=== PATIENT | female | born 1970 | race Caucasian/White ===

== ENCOUNTER 2016-04-13 20:53 | Emergency (ER) | payer OTHER ==
[~2016-04-13] VITALS: Ht 170.2 cm; Wt 74.9 kg
[~2016-04-13 20:53] MED LIST: OXYC5TAB PO; SENN-104 PO
[2016-04-13 20:55] VITALS: TEMP 36.6; Ht 170.2 cm; Wt 74.9 kg
[2016-04-13] MEDS ORDERED: PROPARACAINE HCL 0.5% OP SOLN 15 ML BTL ONE (21:33)
[2016-04-13] MEDS ORDERED: ACET-1256 PO (21:37)
[2016-04-13] MEDS ORDERED: OXYCODONE HCL IR 5 MG TAB (IMMEDIATE RELEASE) PO STA (21:51)
[2016-04-13] MEDS ORDERED: IBUPROFEN 600 MG TAB PO STA (21:51)
[2016-04-13] MEDS ORDERED: ERYTHROMYCIN OP OINT 1 GM PKT OP STA (21:51)
[2016-04-13] MEDS ORDERED: OXYCODONE IR HOME PACK PO ONE (22:00)
[2016-04-13 22:17] VITALS: BP 134/88; PULSE 97; O2SAT 99
--- NOTE | 2016-04-14 02:00 | EMERGENCY ROOM VISIT NOTE ---
History Report prepared by Griselda: Lolly Garcia Under the Supervision of: Dr. Preston Carlos M.D. First contact with patient: 21:26 Chief Complaint: EYE PAIN Stated Complaint: LF EYE PAIN History of Present Illness The patient is a 45 year old female who presents to the Emergency Room with complaints of constant left eye pain beginning this morning. The patient describes the pain as someone poked her in the eye. When the eye is shut she does not experience pain. The patient is experiencing a headache, light sensitivity, slight vision changes, and watering of the eye. She does not wear contacts. Pt denies LOC, fevers, chills, diaphoresis, neck pain, chest pain, breathing difficulties, nausea, vomiting, abdominal pain, back pain, urinary symptoms, numbness, weakness, lymphadenopathy, rash, trauma to eye or other complaints. Source of History: patient Onset: this morning Position: eye (left) Quality: other (poking sensation) Timing: constant Associated Symptoms: + headache Note: The patient is experiencing light sensitivity, slight vision changes, and watering of the eye. Review of Systems See HPI for pertinent positives and negatives. A total of six systems were reviewed and were otherwise negative. Past Medical & Surgical Medical Problems: (1) Panic attacks Surgical Problems: (1) S/P section (2) S/P laparoscopic cholecystectomy Family History No significant family history Social History Smoking Status: Current Every Day Smoker Alcohol Use: occasionally Marital Status: single Housing Status: lives with family Occupation Status: employed Current/Historical Medications Scheduled PRN Acetaminophen (Tylenol), 1,000 MG PO PRN UD PRN for Headache or Pain Allergies Coded Allergies: No Known Allergies (Verified , 04/13/16) Physical Exam Vital Signs Date Time Temp Pulse Resp B/P Pulse Ox O2 Delivery O2 Flow Rate FiO2 04/13/16 22:17 97 18 134/88 99 04/13/16 20:55 36.6 102 16 149/93 99 Room Air Physical Exam GENERAL: Awake, alert, well-appearing, in no distress HENT: Normocephalic, atraumatic. Oropharynx unremarkable. EYES: Normal conjunctiva. Sclera non-icteric. NECK: Supple. No nuchal rigidity. FROM. No JVD. RESPIRATORY: Clear to auscultation. CARDIAC: Regular rate, normal rhythm. Extremities warm and well perfused. Pulses equal. MUSCULOSKELETAL: Atraumatic. NEURO: Normal sensorium. No sensory or motor deficits noted. SKIN: No rash or jaundice noted. Medical Decision & Procedures Medications Administered Medications (Trade) Dose Ordered Sig/Arlen Route Start Time Stop Time Status Last Admin Dose Admin Proparacaine HCl (Alcaine 0.5% Oph Soln) 225 drops STK-MED ONCE .ROUTE 04/13/16 21:33 04/13/16 21:34 DC 04/13/16 21:37 225 DROPS Erythromycin (Erythromycin Oph Oint) 1 appln NOW STAT OP 04/13/16 21:51 04/13/16 21:54 DC 04/13/16 22:09 1 APPLN Ibuprofen (Motrin Tab) 600 mg NOW STAT PO 04/13/16 21:51 04/13/16 21:54 DC 04/13/16 22:08 600 MG Oxycodone HCl (Roxicodone Immediate Rel Tab) 5 mg NOW STAT PO 04/13/16 21:51 04/13/16 21:54 DC 04/13/16 22:09 5 MG Oxycodone HCl (Roxicodone Immediate Rel 5MG Home Pack) 1 homepack UD ONCE PO 04/13/16 22:00 04/13/16 22:01 DC 04/13/16 22:08 1 HOMEPACK Procedure Slit Lamp Examination Indication:Left eye pain The left eye was prepped with topical proparacaine. Slit lamp examination was performed in the standard fashion. Cornea appeared clear. Anterior chamber normal. Scleral injection is present. Mild discharge present. Fluorescein examination performed and revealed corneal defect from 3 o'clock position across central axis to 8 o'clock position. No foreign bodies noted. Negative Aguila sign. The patient tolerated the procedure well without complication. ED Course 2130: The patient was evaluated in room C3. A complete history and physical exam was performed. 2135: 2 drops of Proparacaine into the left eye with good relief of pain. 2137: IOP average 14.3 in left eye. 2145: Refer to procedure for Slit Lamp examination. 2147: Patient headache has no resolved. 2150: Roxicodone Immediate Rel Tab 5 mg PO, Motrin Tab 600 mg PO, Erythromycin Oph Oint 1 appln OP. 0: Roxicodone Immediate Rel 5 mg Home Pack 1 homepack PO. 2203: I reevaluated the patient. Discussed results and discharge instructions: she verbalized understanding and agreement. The patient is ready for discharge. Medical Decision Triage Nursing notes reviewed and agree them. The patient's history was concerning for eye complaints. Differential diagnosis: Etiologies such as trauma, corneal abrasion, corneal ulcer, foreign body, globe penetration, hyphema, hypopyon, and orbital cellulitis, periorbital cellulitis, as well as others were entertained. Physical examination findings: As above.~ Slit-lamp examination revealed a corneal abrasion injury. ER treatment provided: Proparacaine applied and the patient had complete resolution of pain and headache Erythromycin ophthalmic ointment Motrin Oxycodone On reassessment the patient felt better. Diagnostics interpretation by me: Imaging studies: Deferred The patient has what appears to be a corneal abrasion. Her visual acuity is adequate. Her pressures are normal. Anterior chamber was normal. She does not wear contacts. She was already feeling better as the day progressed however was still uncomfortable. Proparacaine completely resolved her symptoms. The patient was treated as above. I discussed conservative management and close follow-up as an outpatient. The patient was in agreement. By the evaluation outlined above emergent etiologies such as dendrite, corneal ulcer, foreign body, globe penetration, hyphema, hypopyon, and orbital cellulitis, periorbital cellulitis, as well as others were deemed relatively unlikely. The patient and were informed about the findings as listed above. All questions were answered and they were pleased with the treatment. Return instructions were outlined and the patient was discharged in stable condition. Outpatient prescription management: Erythromycin ophthalmic ointment Oxycodone home pack Referral: The patient was referred to her PCP for follow-up for a recheck of the current condition. The chart was completed utilizing [employer] voice recognition software. Grammatical errors, random word insertions, pronoun errors, and incomplete sentences are an occasional consequence of this system due to software limitations, ambient noise, and hardware issues. Any formal questions or concerns about the content, text, or information contained within the body of this dictation should be directly addressed to the physician for clarification. Impression Primary Impression: Left corneal abrasion Scribe Attestation The scribe's documentation has been prepared under my direction and personally reviewed by me in its entirety. I confirm that the note above accurately reflects all work, treatment, procedures, and medical decision making performed by me. Departure Information Dispostion Home / Self-Care Referrals No Doctor, Assigned (PCP) Forms HOME CARE DOCUMENTATION FORM, IMPORTANT VISIT INFORMATION, WORK / SCHOOL INSTRUCTIONS Patient Instructions My [facility] Additional Instructions Diagnosis: 1. Corneal abrasion Erythromycin eye ointment: apply a 1/4" ribbon to the affected eye(s) four times a day for the next three days. Wash your hands well, put the ointment on your clean fingertip. Pull down the lower eye lid and apply it, blink the ointment into the eye. Oxycodone (OxyIR) 5mg: Take 1-2 pills every four hours as needed for breakthrough pain. Avoid alcohol, operating machinery or dangerous equipment, working on ladders or roofs, DRIVING, or situations where being under the influence may be dangerous. It is recommended to use a stool softener such as Colace, 100mg twice daily while taking this medication to avoid constipation. Acetaminophen(Tylenol) may be used for fever or pain. Use 1000mg every six hours as needed. Avoid using more than 4000mg in a 24 hour period. Ibuprofen(Motrin, Advil) may be used for fever or pain. Use 600mg every six hours as needed. Take with food. Avoid using more than 2400mg in a 24 hour period. Do not use 2400mg per day for more than three consecutive days without physician direction. Prolonged inappropriate use can lead to stomach upset or ulcers. Cool compresses for 20 minutes at a time four times daily for 2-3 days. Avoid bright lights today, wear sun glasses. Return to the ER for facial swelling, worsening vision, severe eye pain, fevers or as needed. Follow-up with your primary care physician in 2 to 3 days for a recheck of your current condition.
== END 2016-04-13 22:17 | disposition home or self-care (01) ==
LOC: C.EDB 20:53 → C.EDC 22:17
DX: S05.02XA Injury of conjunctiva and corneal abrasion without foreign body, left eye, initial encounter (principal); R51 Headache; F17.200 Nicotine dependence, unspecified, uncomplicated; X58.XXXA Exposure to other specified factors, initial encounter

== ENCOUNTER 2016-10-06 15:13 | Emergency (ER) | payer OTHER ==
[~2016-10-06] VITALS: Ht 170.2 cm; Wt 74.5 kg
[~2016-10-06 15:13] MED LIST changes: +ACET-1256 PO; -OXYC5TAB PO; -SENN-104 PO
[2016-10-06 15:17] VITALS: Ht 170.2 cm; Wt 74.5 kg
[2016-10-06 16:00] LABS: HEMATOCRIT 41.5 % (37-47); MEAN CELL VOLUME 96.7 fL (80-100); MEAN CORPUSCULAR HEMOGLOBIN 32.6 pg (25-34); MEAN CORPUSCULAR HGB CONC 33.7 g/dl (32-36); MEAN PLATELET VOLUME 10.2 fL (7.4-10.4); PLATELET COUNT 263 K/uL (130-400); RED BLOOD COUNT 4.29 M/uL (4.2-5.4); WHITE BLOOD COUNT 9.85 K/uL (4.8-10.8)
[2016-10-06 16:15] LABS: ALT/SGPT 17 U/L (12-78); BLOOD UREA NITROGEN 13 mg/dl (7-18); BUN/CREATININE RATIO 18.2 (10-20); CALCIUM 8.5 mg/dl (8.5-10.1); CARBON DIOXIDE 28 mmol/L (21-32); CHLORIDE 109 mmol/L (98-107); CREATININE 0.71 mg/dl (0.60-1.20); GLUCOSE 106 mg/dl (70-99); POTASSIUM 3.9 mmol/L (3.5-5.1); SODIUM 144 mmol/L (136-145)
[2016-10-06 16:17] LABS: MANUAL MICROSCOPIC REQUIRED? NO; REVIEW REQ? NO; URINE APPEARANCE CLEAR (CLEAR); URINE BILIRUBIN NEG (NEG); URINE COLOR YELLOW; URINE EPITHELIAL CELL AUTO >30 /lpf (0-5); URINE NITRITE NEG (NEG); URINE SPECIFIC GRAVITY 1.029 (1.000-1.030); UROBILINOGEN NEG (NEG); ZZUR CULT IF INDIC CLEAN CATCH NO
[2016-10-06 16:18] LABS: ALKALINE PHOSPHATASE 70 U/L (45-117); AST/SGOT 17 U/L (15-37)
[2016-10-06 16:32] LABS: BASO % 0.2 %; BASO ABS # 0.02 K/uL (0-0.2); COMPLETE YES; EOS % 1.9 %; IG% 0.2 %; LYMPH % 35.6 %; LYMPH ABS # 3.51 K/uL (1.2-3.4); MONO % 5.7 %; NEUT % 56.4 %
--- NOTE | 2016-10-06 16:38 | DIAGNOSTIC IMAGING REPORT ---
ABD/PELVIS WITHOUT FOR STONE CT DOSE: 669.31 mGy.cm HISTORY: Flank pain right flank pain TECHNIQUE: Multiaxial CT images of the abdomen and pelvis were performed without the use of intravenous and oral contrast according to the standard department stone protocol. A dose lowering technique was utilized adhering to the principles of ALARA. COMPARISON STUDY: None. FINDINGS: Lung bases are clear. Configuration of liver spleen and pancreas are unremarkable. Prior cholecystectomy. No evidence for an obstructing urinary tract calculus. Nonobstructing bowel pattern. Normal appendix. IMPRESSION: No renal stones or hydronephrosis. No acute process of the abdomen or pelvis. The above report was generated using voice recognition software. It may contain grammatical, syntax or spelling errors. Electronically signed by: Hamilton Linder M.D. 10/06/2016 4:36 PM Dictated Date/Time: 10/06/2016 4:34 PM
[2016-10-06 17:33] VITALS: BP 114/60; PULSE 65; TEMP 36.7; O2SAT 98
--- NOTE | 2016-10-06 20:16 | EMERGENCY ROOM VISIT NOTE ---
History Report prepared by Scribe: Nicole Jacobson Under the Supervision of: Dr. Preston Carlos M.D. First contact with patient: 15:21 Chief Complaint: FLANK PAIN Stated Complaint: RIGHT LOWER BACK/SIDE History of Present Illness The patient is a 46 year old female who presents to the Emergency Room with complaints of persistent right sided flank pain for the past 3 weeks. She rates her discomfort as a 5/10 and notes the pain radiates from her back around to her upper thigh area. Gas-X and Tylenol have provided minimal pain relief. She has tried seeing her chiropractor for manipulations but state they have provided no relief. 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 The patient has undergone a previous cholecystectomy and 3 sections. She denies any family history of kidney stones. Pt denies LOC, headache, fevers, chills, diaphoresis, visual changes, neck pain, chest pain, breathing difficulties, nausea, vomiting, back pain, melena, hematochezia, urinary symptoms, numbness, weakness, lymphadenopathy, rash, or other complaints. Source of History: patient Onset: 3 weeks [employer] Position: back Symptom Intensity: 5/10 Timing: other (persistent) Modifying Factors (Relieving): tylenol, other (Gas-X, chiropractic manipulations) Review of Systems See HPI for pertinent positives and negatives. A total of ten systems were reviewed and were otherwise negative. Past Medical & Surgical Medical Problems: (1) Panic attacks Surgical Problems: (1) S/P section (2) S/P laparoscopic cholecystectomy Family History No significant family history Social History Smoking Status: Current Every Day Smoker Alcohol Use: occasionally Drug Use: none Marital Status: Housing Status: lives with family Occupation Status: employed Current/Historical Medications Scheduled PRN Acetaminophen (Tylenol), 1,000 MG PO PRN UD PRN for Headache or Pain Allergies Coded Allergies: No Known Allergies (Verified , 10/06/16) Physical Exam Vital Signs Date Time Temp Pulse Resp B/P (MAP) Pulse Ox O2 Delivery O2 Flow Rate FiO2 10/06/16 17:33 36.7 65 18 114/60 98 10/06/16 15:17 36.7 91 18 123/79 98 Room Air Physical Exam GENERAL: Awake, alert, well-appearing, in no distress HENT: Normocephalic, atraumatic. Oropharynx unremarkable. EYES: Normal conjunctiva. Sclera non-icteric. NECK: Supple. No nuchal rigidity. FROM. No JVD. RESPIRATORY: Clear to auscultation. CARDIAC: Regular rate, normal rhythm. Extremities warm and well perfused. Pulses equal. ABDOMEN: Soft, non-distended. RLQ tenderness to palpation. No rebound or guarding. No masses. RECTAL: Deferred. MUSCULOSKELETAL: Chest examination reveals no tenderness. The back is symmetrical on inspection without obvious abnormality. Right sided CVA tenderness to palpation. No joint edema. LOWER EXTREMITIES: Calves are equal size bilaterally and non-tender. No edema. No discoloration. NEURO: Normal sensorium. No sensory or motor deficits noted. SKIN: No rash or jaundice noted. Medical Decision & Procedures ER Provider Diagnostic Interpretation: Radiology results as stated below per my review and radiologist interpretation: ABD/PELVIS WITHOUT FOR STONE CT DOSE: 669.31 mGy.cm HISTORY: Flank pain right flank pain TECHNIQUE: Multiaxial CT images of the abdomen and pelvis were performed without the use of intravenous and oral contrast according to the standard department stone protocol. A dose lowering technique was utilized adhering to the principles of ALARA. COMPARISON STUDY: None. FINDINGS: Lung bases are clear. Configuration of liver spleen and pancreas are unremarkable. Prior cholecystectomy. No evidence for an obstructing urinary tract calculus. Nonobstructing bowel pattern. Normal appendix. IMPRESSION: No renal stones or hydronephrosis. No acute process of the abdomen or pelvis. The above report was generated using voice recognition software. It may contain grammatical, syntax or spelling errors. Electronically signed by: Hamilton Linder M.D. 10/06/2016 4:36 PM Laboratory Results 10/06/16 15:40 Red Blood Count 4.29, Mean Corpuscular Volume 96.7, Mean Corpuscular Hemoglobin 32.6, Mean Corpuscular Hemoglobin Concent 33.7, Mean Platelet Volume 10.2, Neutrophils (%) (Auto) 56.4, Lymphocytes (%) (Auto) 35.6, Monocytes (%) (Auto) 5.7, Eosinophils (%) (Auto) 1.9, Basophils (%) (Auto) 0.2, Neutrophils # (Auto) 5.55, Lymphocytes # (Auto) 3.51, Monocytes # (Auto) 0.56, Eosinophils # (Auto) 0.19, Basophils # (Auto) 0.02 10/06/16 15:40 Test 10/06/16 14:30 10/06/16 15:40 Urine Color YELLOW Urine Appearance CLEAR (CLEAR) Urine pH 5.0 (4.5-7.5) Urine Specific [place] 1.029 (1.000-1.030) Urine Protein NEG (NEG) Urine Glucose (UA) NEG (NEG) Urine Ketones NEG (NEG) Urine Occult Blood 2+ (NEG) Urine Nitrite NEG (NEG) Urine Bilirubin NEG (NEG) Urine Urobilinogen NEG (NEG) Urine Leukocyte Esterase NEG (NEG) Urine WBC (Auto) 1-5 /hpf (0-5) Urine RBC (Auto) 10-30 /hpf (0-4) Urine Hyaline Casts (Auto) 0 /lpf (0-5) Urine Epithelial Cells (Auto) >30 /lpf (0-5) Urine Bacteria (Auto) NEG (NEG) Urine Test NEG (NEG) White Blood Count 9.85 K/uL (4.8-10.8) Red Blood Count 4.29 M/uL (4.2-5.4) Hemoglobin 14.0 g/dL (12.0-16.0) Hematocrit 41.5 % (37-47) Mean Corpuscular Volume 96.7 fL (80-100) Mean Corpuscular Hemoglobin 32.6 pg (25-34) Mean Corpuscular Hemoglobin Concent 33.7 g/dl (32-36) Platelet Count 263 K/uL (130-400) Mean Platelet Volume 10.2 fL (7.4-10.4) Neutrophils (%) (Auto) 56.4 % Lymphocytes (%) (Auto) 35.6 % Monocytes (%) (Auto) 5.7 % Eosinophils (%) (Auto) 1.9 % Basophils (%) (Auto) 0.2 % Neutrophils # (Auto) 5.55 K/uL (1.4-6.5) Lymphocytes # (Auto) 3.51 K/uL (1.2-3.4) Monocytes # (Auto) 0.56 K/uL (0.11-0.59) Eosinophils # (Auto) 0.19 K/uL (0-0.5) Basophils # (Auto) 0.02 K/uL (0-0.2) RDW Standard Deviation 49.0 fL (36.4-46.3) RDW Coefficient of Variation 13.8 % (11.5-14.5) Immature Granulocyte % (Auto) 0.2 % Immature Granulocyte # (Auto) 0.02 K/uL (0.00-0.02) Red Blood Cell Morphology Unremarkable Anion Gap 7.0 mmol/L (3-11) Est Creatinine Clear Calc Drug Dose 106.6 ml/min Estimated GFR () 120.1 Estimated GFR (Non- 103.6 BUN/Creatinine Ratio 18.2 (10-20) Calcium Level 8.5 mg/dl (8.5-10.1) Total Bilirubin 0.3 mg/dl (0.2-1) Direct Bilirubin < 0.1 mg/dl (0-0.2) Aspartate Amino Transf (AST/SGOT) 17 U/L (15-37) Alanine Aminotransferase (ALT/SGPT) 17 U/L (12-78) Alkaline Phosphatase 70 U/L (45-117) Total Protein 7.3 gm/dl (6.4-8.2) Albumin 3.6 gm/dl (3.4-5.0) Lipase 111 U/L (73-393) Laboratory results reviewed by [place] Course 1531: The patient was evaluated in room C6. A complete history and physical exam was performed. 1658: I reevaluated the patient. She is feeling better. I discussed her results and discharge instructions and she verbalized complete understanding and agreement. I also encouraged her to find a primary care physician for routine health maintenance checks and she is agreeable with this plan. Medical Decision Triage Nursing notes reviewed. The patient's presentation and history were concerning for flank pain. Etiologies such as musculoskeletal, renal colic, appendicitis, diverticulitis, mesenteric ischemia, aortic pathology, infections, inflammatory bowel disease, PUD, biliary pathology, UTI, as well as others were entertained. The patient was evaluated. She was tender to palpation in the right flank area. She had some mild right lower quadrant tenderness really inferiorly near the inguinal ligament. There is no hernia. Clinically patient looked well and had a benign abdomen. She underwent imaging. Blood work was unremarkable. Urinalysis reveals trace blood but she noted recently started her menses. She denied any significant urinary symptoms. CT imaging did not reveal any evidence of abnormality. On reassessment she was doing well. As she feels fine resting and can elicit the pain with stretching and moving coupled with the fact that she is tender on physical examination this seems most consistent with a musculoskeletal source. I discussed conservative management. The patient does do a lot of lifting at work. I did discuss this. The patient will use NSAIDs and heat. She will rest. If she worsens in any way she will be back. The patient was counseled on following up with a primary physician. I gave my usual and customary discussion regarding this issue. By the evaluation outlined above other emergent etiologies such as those listed in the differential, as well as others, were deemed relatively unlikely. The patient was educated about the findings as listed above. All questions were answered and the patient was pleased with the treatment. Return instructions were outlined and the patient was discharged in stable condition. The patient was referred to primary care for follow-up for a recheck of the current condition. Medication Reconcilliation Current Medication List: was personally reviewed by me Blood Pressure Screening Patient's blood pressure: Normal blood pressure Blood pressure disposition: Did not require urgent referral Impression Primary Impression: Right flank pain Scribe Attestation The scribe's documentation has been prepared under my direction and personally reviewed by me in its entirety. I confirm that the note above accurately reflects all work, treatment, procedures, and medical decision making performed by me. Departure Information Dispostion Home / Self-Care Referrals No Doctor, Assigned (PCP) Patient Instructions My [facility] [address] Additional Instructions Ibuprofen(Motrin, Advil) may be used for fever or pain. Use 600mg every six hours as needed. Take with food. Avoid using more than 2400mg in a 24 hour period. Do not use 2400mg per day for more than three consecutive days without physician direction. Prolonged inappropriate use can lead to stomach upset or ulcers. This medication can be taken if you need to drive, work, or perform activities which may be dangerous when taking narcotic pain medication. (AND/OR) Acetaminophen(Tylenol) may be used for fever or pain. Use 1000mg every six hours as needed. Avoid using more than 4000mg in a 24 hour period. This medication can be taken if you need to drive, work, or perform activities which may be dangerous when taking narcotic pain medication. Rest and avoid heavy lifting until your symptoms resolve and then gradually return to full activity. A good rule of thumb is if it hurts your back to perform a certain activity, then it should be avoided until you are healthy again. A heating pad, warm compresses, or a hot shower may help with tight muscles and can be done several times a day as needed. Continue current medications. Return to the ER immediately for any numbness, tingling, severe pain, loss of control of your bowels or bladder, inability to walk, or as needed. Follow up with a primary care physician within 3-5 days for a recheck of your current condition and to establish primary care.
== END 2016-10-06 17:34 | disposition home or self-care (01) ==
LOC: C.EDB 15:15 → C.EDC 17:34
DX: R10.9 Unspecified abdominal pain (principal); F17.200 Nicotine dependence, unspecified, uncomplicated